=== PATIENT | female | born 2005 | race Caucasian/White ===

== ENCOUNTER 2024-05-03 11:15 | Emergency (ER) | payer OTHER ==
[~2024-05-03] VITALS: Ht 157.5 cm; Wt 74.2 kg
[2024-05-03] MEDS ORDERED: NAPR-837 PO (14:04)
[2024-05-03 14:26] VITALS: BP 119/95; TEMP 97.5; O2SAT 99
== END 2024-05-03 14:27 | disposition home or self-care (01) ==
LOC: M ED 11:15 → EDBD 11:15 → M ED 14:27
DX: M23.92 Unspecified internal derangement of left knee (principal); X50.9XXA Other and unspecified overexertion or strenuous movements or postures, initial encounter; Y92.89 Other specified places as the place of occurrence of the external cause; Y93.89 Activity, other specified; Y99.1 Military activity